=== PATIENT | male | born 1950 | race Caucasian/White ===

== ENCOUNTER 2019-05-09 11:30 | Emergency (ER) | payer OTHER ==
[2019-05-09 11:47] VITALS: BP 111/65; PULSE 59
[2019-05-09 12:16] LABS: ANION GAP 13.3; CHLORIDE,CL 91 mmol/L (101-111); SODIUM,NA 131 mmol/L (135-145)
[2019-05-09] MEDS ORDERED: Aspirin 81 MG Tab.Chew PO ONE (12:45)
--- NOTE | 2019-05-09 16:36 | EDM.PDOC ---
ED HPI GENERAL MEDICAL PROBLEM - General Chief Complaint: General Stated Complaint: CHEST PAIN/NECK PAIN Time Seen by Provider: 05/09/19 12:00 Source of Information: Reports: Patient History Limitations: Reports: No Limitations - History of Present Illness INITIAL COMMENTS - FREE TEXT/NARRATIVE: This 69 yo male patient reports to the emergency department due to bilateral shoulder pain and left anterior noble pain. The patient [facility] and [facility] to report directly to the [facility]. The patient reports his shoulder pain has been getting better. The patient reports his left anterior noble started today and has been getting worse. Onset: Today Duration: Constant, Improving Location: Reports: Upper Extremity, Left, Upper Extremity, Right, Lower Extremity, Left Quality: Reports: Other Severity: Moderate Improves with: Reports: None Worsens with: Reports: None Context: Reports: Other Bilateral Shoulder Pain Score (Numeric/FACES): 1 - Related Data Allergies Allergy/AdvReac Type Severity Reaction Status Date / Time acetaminophen [From Tylenol] Allergy Cannot Verified 05/09/19 11:47 Remember cephalexin [Cephalexin] Allergy Rash Verified 05/09/19 11:47 Home Meds: Home Meds Aspirin [Halfprin] 81 mg PO DAILY 06/20/13 [History] lamoTRIgine [Lamictal] 200 mg PO BID 06/20/13 [History] levETIRAcetam [Keppra] 750 mg PO BID 06/20/13 [History] Lisinopril 2.5 mg PO DAILY 03/03/15 [History] Metoprolol Tartrate 50 mg PO DAILY 03/03/15 [History] Pyridoxine HCl (Vitamin B6) [Pyridoxine HCl] 50 mg PO DAILY 03/03/15 [History] Calcium Carbonate/Vitamin D3 [Calcium Carb 500 MG] 260 mg PO BID 05/09/19 [ History] Cholecalciferol (Vitamin D3) [Vitamin D3] 2,000 unit PO DAILY 05/09/19 [History] Nitroglycerin [Nitrostat] 0.4 mg SL ASDIRECTED PRN 05/09/19 [History] Past Medical History HEENT History: Reports: Hard of Hearing, Impaired Vision Other HEENT History: wears glasses and hearing aides Cardiovascular History: Reports: High Cholesterol, Hypertension Respiratory History: Reports: None Genitourinary History: Reports: None Musculoskeletal History: Reports: Fracture Neurological History: Reports: Seizure Psychiatric History: Reports: None Endocrine/Metabolic History: Reports: None Hematologic History: Reports: None Immunologic History: Reports: None Oncologic (Cancer) History: Reports: None Dermatologic History: Reports: None - Infectious Disease History Infectious Disease History: Reports: Measles, Mumps - Past Surgical History Head Surgeries/Procedures: Reports: None Cardiovascular Surgical History: Reports: Coronary Artery Stent GI Surgical History: Reports: Colonoscopy Musculoskeletal Surgical History: Reports: Shoulder Replacement Social & Family History - Tobacco Use Smoking Status *Q: Current Every Day Smoker Years of Tobacco use: 52 Packs/Tins Daily: 0.5 Second Hand Smoke Exposure: No - Caffeine Use Caffeine Use: Reports: Coffee - Recreational Drug Use Recreational Drug Use: No ED ROS GENERAL - Review of Systems Review Of Systems: Comprehensive ROS is negative, except as noted in HPI. ED EXAM, GENERAL - Physical Exam Exam: See Below Exam Limited By: No Limitations General Appearance: Alert, WD/WN, Moderate Distress Eye Exam: Bilateral Eye: EOMI, Normal Inspection, PERRL Ears: Normal External Exam, Normal Canal, Hearing Grossly Normal, Normal TMs Nose: Normal Inspection, Normal Mucosa, No Blood Throat/Mouth: Normal Inspection, Normal Lips, Normal Teeth, Normal Gums, Normal Oropharynx, Normal Voice, No Airway Compromise Head: Atraumatic, Normocephalic Neck: Normal Inspection, Supple, Non-Tender, Full Range of Motion Respiratory/Chest: No Respiratory Distress, Lungs Clear, Normal Breath Sounds, No Accessory Muscle Use, Chest Non-Tender Cardiovascular: Normal Peripheral Pulses, Regular Rate, Rhythm, No Edema, No Gallop, No JVD, No Murmur, No Rub GI/Abdominal: Normal Bowel Sounds, Soft, Non-Tender, No Organomegaly, No Distention, No Abnormal Bruit, No Mass (Male) Exam: Deferred Rectal (Males) Exam: Deferred Back Exam: Normal Inspection, Full Range of Motion, NT Extremities: Normal Inspection, Normal Range of Motion, Non-Tender, Normal Capillary Refill, No Pedal Edema Neurological: Alert, Oriented, CN II-XII Intact, Normal Cognition, Normal Gait, Normal Reflexes, No Motor/Sensory Deficits Psychiatric: Normal Affect, Normal Mood Skin Exam: Warm, Dry, Intact, Normal Color, No Rash Lymphatic: No Adenopathy Course - Vital Signs Last Recorded V/S: Last Vital Signs Temp 36.3 C 05/09/19 11:40 Pulse 59 L 05/09/19 11:40 Resp 16 05/09/19 11:40 BP 111/65 05/09/19 11:40 Pulse Ox 98 05/09/19 11:40 - Orders/Labs/Meds Orders: Active Orders 24 hr Category Date Time Status EKG Documentation Completion [RC] ROUTINE Care 05/09/19 15:45 Active EKG Documentation Completion [RC] URGENT Care 05/09/19 11:31 Active Labs: Laboratory Tests 05/09/19 05/09/19 05/09/19 Range/Units 11:46 11:46 15:53 WBC 9.0 (5.0-10.0) 10^3/uL RBC 4.14 L (4.6-6.2) 10^6/uL Hgb 13.3 L D (14.0-18.0) g/dL Hct 38.9 L (40.0-54.0) % MCV 94.0 (80-100) fL MCH 32.1 (27.0-34.0) pg MCHC 34.2 (33.0-35.0) g/dL Plt Count 260 (150-450) 10^3/uL Neut % (Auto) 66.2 (42.2-75.2) % Lymph % (Auto) 17.3 L (20.5-50.1) % [place] % (Auto) 12.1 H (2-8) % Eos % (Auto) 4.0 H (1.0-3.0) % Baso % (Auto) 0.4 (0.0-1.0) % Sodium 131 L (135-145) mmol/L Potassium 4.3 (3.6-5.0) mmol/L Chloride 91 L D (101-111) mmol/L Carbon Dioxide 31.0 (21.0-31.0) mmol/L Anion Gap 13.3 BUN 16 (7-18) mg/dL Creatinine 1.0 (0.6-1.3) mg/dL Est Cr Clr Drug Dosing 70.97 mL/min Estimated GFR (MDRD) > 60 BUN/Creatinine Ratio 16.00 Glucose 86 (74-105) mg/dL Calcium 9.1 (8.4-10.2) mg/dl Total Bilirubin 1.0 (0.2-1.0) mg/dL AST 55 H (10-42) IU/L ALT 39 (10-60) IU/L Alkaline Phosphatase 270 H (42-121) IU/L Troponin I 0.04 H* < 0.02 (0.00-0.02) ng/ml Total Protein 6.9 (6.7-8.2) g/dl Albumin 3.7 (3.2-5.5) g/dl Globulin 3.2 Albumin/Globulin Ratio 1.16 Meds: Medications Discontinued Medications Generic Name Dose Route Start Last Admin Trade Name Cindy PRN Reason Stop Dose Admin Aspirin 324 mg 05/09/19 12:45 05/09/19 13:19 Aspirin PO 05/09/19 12:46 324 mg ONETIME ONE Administration Departure - Departure Time of Disposition: 16:32 Disposition: Home, Self-Care 01 Condition: Fair Clinical Impression: Nonspecific chest pain Left shoulder pain Qualifiers: Chronicity: acute Qualified Code(s): M25.512 - Pain in left shoulder - Discharge Information *PRESCRIPTION DRUG MONITORING PROGRAM REVIEWED*: Not Applicable *COPY OF PRESCRIPTION DRUG MONITORING REPORT IN PATIENT DALIA: Not Applicable Instructions: Shoulder Pain, [id number], Nonspecific Chest Pain, [id number] Forms: ED Department Discharge Care Plan Goals: The patient and his were advised of the examination, lab, x-ray, EKG, repeat EKG and repeat lab results during the visit. The patient was encouraged to follow-up with his primary care facility if he continues to have symptoms. If the patient has any additional symptoms or concerns, the patient should either return to the emergency department or visit his primary care facility. Sepsis Event Note - Evaluation Sepsis Screening Result: No Definite Risk - Focused Exam Vital Signs: Vital Signs Temp Pulse Resp BP Pulse Ox 05/09/19 11:40 36.3 C 59 L 16 111/65 98 Date Exam was Performed: 05/09/19 Time Exam was Performed: 16:36 - My Orders Last 24 Hours: My Active Orders 05/09/19 11:31 EKG Documentation Completion [RC] URGENT 05/09/19 15:45 EKG Documentation Completion [RC] ROUTINE - Assessment/Plan Last 24 Hours: My Active Orders 05/09/19 11:31 EKG Documentation Completion [RC] URGENT 05/09/19 15:45 EKG Documentation Completion [RC] ROUTINE
== END 2019-05-09 16:50 | disposition home or self-care (01) ==
LOC: DL.ED 11:30
DX: M25.512 Pain in left shoulder (principal); R07.9 Chest pain, unspecified; R56.9 Unspecified convulsions; F17.210 Nicotine dependence, cigarettes, uncomplicated; Z88.1 Allergy status to other antibiotic agents; Z79.82 Long term (current) use of aspirin; Z79.899 Other long term (current) drug therapy
CPT/HCPCS: 36415; 80053; 84484; 85025; 93005; 99283; A9270

== ENCOUNTER 2019-08-12 11:47 | Emergency (ER) | payer OTHER ==
--- NOTE | 2019-08-12 11:57 | EDM.PDOC ---
ED HPI GENERAL MEDICAL PROBLEM - General Chief Complaint: Chest Pain Stated Complaint: CHEST PAIN Time Seen by Provider: 08/12/19 11:56 Source of Information: Reports: Patient, Old Records, RN, RN Notes Reviewed History Limitations: Reports: No Limitations - History of Present Illness INITIAL COMMENTS - FREE TEXT/NARRATIVE: Pt presents to ER from home with c/o chest pain. He states that he is currently on a chemo tx. 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 Pt states that yesterday he was laying on a concrete floor working on a mower deck, trying to keep up with his healthy [place]. After working on the mower his left chest wall, left shoulder, and upper back were sore. Through the night, and today the pain has moved around in the left chest, shoulder, upper back, and neck and has been waxing and waning in intensity. Movement of the torso and left shoulder aggravates the pain. He denies radiating pain, severe pain, shortness of breath, cough, edema, palpitations, orthopnea, fever, chills, N/V, or rash. Denies any Covid exposures. Pt took his Aspirin and all of his other routine medications this morning. He did not take any Nitroglycerin for the pain. Onset: Gradual Onset Date: 08/11/19 Duration: Constant, Waxing/Waning Location: Reports: Chest, Upper Extremity, Left Quality: Reports: Ache Severity: Mild Improves with: Reports: None Worsens with: Reports: Movement Associated Symptoms: Reports: No Other Symptoms Treatments REGISTERED NURSE: Reports: Aspirin, Other Medication(s) Left Chest Pain Score (Numeric/FACES): 6 - Related Data Allergies Allergy/AdvReac Type Severity Reaction Status Date / Time acetaminophen [From Tylenol] Allergy Cannot Verified 05/09/19 11:47 Remember cephalexin [Cephalexin] Allergy Rash Verified 05/09/19 11:47 hydrocodone Allergy Cannot Verified 08/12/19 12:20 Remember Home Meds: Home Meds Aspirin [Halfprin] 81 mg PO DAILY 06/20/13 [History] lamoTRIgine [Lamictal] 200 mg PO BID 06/20/13 [History] levETIRAcetam [Keppra] 750 mg PO BID 06/20/13 [History] Lisinopril 2.5 mg PO DAILY 03/03/15 [History] Metoprolol Tartrate 25 mg PO DAILY 03/03/15 [History] Pyridoxine HCl (Vitamin B6) [Pyridoxine HCl] 100 mg PO DAILY 03/03/15 [History] Calcium Carbonate/Vitamin D3 [Calcium Carb 500 MG] 648 mg PO DAILY 05/09/19 [ History] Cholecalciferol (Vitamin D3) [Vitamin D3] 50 mcg PO DAILY 05/09/19 [History] Alendronate Sodium 70 mg PO DAILY 08/12/19 [History] Allopurinol [Zyloprim] 300 mg PO DAILY 08/12/19 [History] Lidocaine 5% [Lidoderm 5%] 1 patch TOP ASDIRECTED 08/12/19 [History] Prochlorperazine Maleate 10 mg PO Q6HR PRN 08/12/19 [History] Tiotropium [Spiriva HandiHaler] 18 mcg PO DAILY 08/12/19 [History] dexAMETHasone [Dexamethasone] 8 mg PO DAILY 08/12/19 [History] traMADol [Ultram] 50 mg PO TID PRN 08/12/19 [History] Past Medical History HEENT History: Reports: Hard of Hearing, Impaired Vision Other HEENT History: wears glasses and hearing aides Cardiovascular History: Reports: High Cholesterol, Hypertension Respiratory History: Reports: None Gastrointestinal History: Reports: Colon Polyp Genitourinary History: Reports: None Musculoskeletal History: Reports: Fracture Neurological History: Reports: Seizure Psychiatric History: Reports: None Endocrine/Metabolic History: Reports: None Hematologic History: Reports: None Immunologic History: Reports: Immunosuppression (Chemo tx.) Oncologic (Cancer) History: Reports: Colon, Liver, 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.) Dermatologic History: Reports: None - Infectious Disease History Infectious Disease History: Reports: Measles, Mumps - Past Surgical History Head Surgeries/Procedures: Reports: None Cardiovascular Surgical History: Reports: Coronary Artery Stent GI Surgical History: Reports: Colonoscopy, Polypectomy, Other (See Below) ( Liver biopsy) Musculoskeletal Surgical History: Reports: Shoulder Replacement Social & Family History - Family History Family Medical History: Noncontributory - Caffeine Use Caffeine Use: Reports: Coffee - Living Situation & Occupation Living situation: Reports: , with Spouse Occupation: Retired ED ROS GENERAL - Review of Systems Review Of Systems: Comprehensive ROS is negative, except as noted in HPI. ED EXAM, GENERAL - Physical Exam Exam: See Below Exam Limited By: No Limitations General Appearance: Alert, WD/WN, No Apparent Distress Eye Exam: Bilateral Eye: Normal Inspection Nose: Normal Inspection Throat/Mouth: Normal Inspection, Normal Lips, Normal Teeth, Normal Gums, Normal Oropharynx, Normal Voice, No Airway Compromise Head: Atraumatic, Normocephalic Neck: Normal Inspection, Supple, Non-Tender, Full Range of Motion Respiratory/Chest: No Respiratory Distress, Lungs Clear, Normal Breath Sounds, No Accessory Muscle Use, Other (Tender to palpation at left lower anterior chest wall, no visible bruising, swelling, rash, or redness. No palpable mass or crepitus.). No: Crackles, Rales, Rhonchi, Wheezing, Stridor, Splinting Cardiovascular: Normal Peripheral Pulses, Regular Rate, Rhythm, No Edema, No Gallop, No JVD, No Murmur, No Rub GI/Abdominal: Normal Bowel Sounds, Soft, Non-Tender, No Organomegaly, No Distention, No Abnormal Bruit, No Mass Back Exam: Normal Inspection Extremities: Normal Inspection, Normal Range of Motion, Non-Tender, Normal Capillary Refill, No Pedal Edema Neurological: Alert, Oriented, CN II-XII Intact, Normal Cognition, Normal Gait, No Motor/Sensory Deficits Psychiatric: Normal Affect, Normal Mood Skin Exam: Warm, Dry, Intact, Normal Color, No Rash EKG INTERPRETATION EKG Date: 08/12/19 Time: 11:55 Rhythm: Other (SR) Rate (Beats/Min): 63 [place]: Normal P-Wave: Present QRS: Normal ST-T: Normal QT: Normal Comparison: NA - No Prior EKG Course - Vital Signs Last Recorded V/S: Last Vital Signs Temp 97.9 F 08/12/19 12:14 Pulse 70 08/12/19 12:14 Resp 16 08/12/19 12:14 BP 125/97 H 08/12/19 12:14 Pulse Ox 97 08/12/19 12:14 - Orders/Labs/Meds Orders: Active Orders 24 hr Category Date Time Status EKG 12 Lead [EKG Documentation Completion] [RC] STAT Care 08/12/19 11:58 Active Implanted Port Access [RC] ONETIME Care 08/12/19 11:57 Active Chest 1V Frontal [CR] Stat Exams 08/12/19 11:57 Taken CBC WITH AUTO DIFF [HEME] Stat Lab 08/12/19 12:09 Results MANUAL DIFFERENTIAL QA/NC [HEME] Stat Lab 08/12/19 12:09 Results Labs: Laboratory Tests 08/12/19 08/12/19 Range/Units 12:09 12:09 WBC 23.9 H (5.0-10.0) 10^3/uL RBC 2.97 L (4.6-6.2) 10^6/uL Hgb 10.2 L D (14.0-18.0) g/dL Hct 29.5 L (40.0-54.0) % MCV 99.3 D (80-100) fL MCH 34.3 H (27.0-34.0) pg MCHC 34.6 (33.0-35.0) g/dL Plt Count 202 (150-450) 10^3/uL Neut % (Auto) 91.1 H (42.2-75.2) % Lymph % (Auto) 7.5 L (20.5-50.1) % [place] % (Auto) 1.0 L (2-8) % Eos % (Auto) 0.4 L (1.0-3.0) % Baso % (Auto) 0.0 (0.0-1.0) % Add Manual Diff Yes Sodium 133 L (136-145) mmol/L Potassium 4.3 (3.5-5.1) mmol/L Chloride 96 L (98-107) mmol/L Carbon Dioxide 33 H (21-32) mmol/L Anion Gap 8.3 (7-13) mEq/L BUN 20 H (7-18) mg/dL Creatinine 0.81 (0.70-1.30) mg/dL Est Cr Clr Drug Dosing 76.58 mL/min Estimated GFR (MDRD) > 60 BUN/Creatinine Ratio 24.7 (No establ ref range) Glucose 87 (74-99) mg/dL Calcium 8.0 L (8.5-10.1) mg/dL Total Bilirubin 0.7 (0.2-1.0) mg/dL AST 24 (15-37) U/L ALT 38 (16-63) U/L Alkaline Phosphatase 117 H (46-116) U/L Troponin I < 0.017 (0.000-0.056) ng/mL Total Protein 5.8 L (6.4-8.2) g/dL Albumin 3.2 L (3.4-5.0) g/dL Globulin 2.6 Albumin/Globulin Ratio 1.23 - Radiology Interpretation Free Text/Narrative:: XR Chest: no acute process, see Rad. report. Departure - Departure Time of Disposition: 12:54 Disposition: Home, Self-Care 01 Condition: Good Clinical Impression: Atypical chest pain Instructions: Nonspecific Chest Pain, Adult Forms: ED Department Discharge Additional Instructions: Activity as tolerated. Follow up with your doctor if not improving in the few days. Return to ER if chest pain worsens, or any new or emergent symptoms develop. Sepsis Event Note - Focused Exam Vital Signs: Vital Signs Temp Pulse Resp BP Pulse Ox 08/12/19 12:14 97.9 F 70 16 125/97 H 97 Date Exam was Performed: 08/12/19 Time Exam was Performed: 12:54 - My Orders Last 24 Hours: My Active Orders 08/12/19 11:57 Implanted Port Access [RC] ONETIME Chest 1V Frontal [CR] Stat 08/12/19 11:58 EKG 12 Lead [EKG Documentation Completion] [RC] STAT 08/12/19 12:09 CBC WITH AUTO DIFF [HEME] Stat MANUAL DIFFERENTIAL QA/NC [HEME] Stat - Assessment/Plan Last 24 Hours: My Active Orders 08/12/19 11:57 Implanted Port Access [RC] ONETIME Chest 1V Frontal [CR] Stat 08/12/19 11:58 EKG 12 Lead [EKG Documentation Completion] [RC] STAT 08/12/19 12:09 CBC WITH AUTO DIFF [HEME] Stat MANUAL DIFFERENTIAL QA/NC [HEME] Stat
[2019-08-12 12:19] VITALS: BP 125/97; PULSE 70
[2019-08-12 12:43] LABS: ANION GAP 8.3 mEq/L (7-13); CHLORIDE,CL 96 mmol/L (98-107); SODIUM,NA 133 mmol/L (136-145)
--- NOTE | 2019-08-12 13:26 | CR ---
EXAMINATION: Chest 1V Frontal SEX: Male AGE: 69 years CLINICAL HISTORY: 69-year-old male complaining of CHEST PAIN. INTERPRETATION: No acute new cardiopulmonary abnormality since comparison film 20 June 2013. 1. Ectasia thoracic aorta and chronic prominence of the proximal pulmonary artery segments. 2. Bilateral total shoulder replacements (orthopedic prostheses). 3. Normal cardiac silhouette. No pulmonary vascular congestion, cephalization of flow or alveolar edema. External telemetry monitor leads. No dependent pleural fluid accumulation. 4. No new lung mass, hilar lymphadenopathy or focal lobar pneumonia. No atelectasis/collapse. 5. No pneumothorax or pneumomediastinum. Midline tracheal bronchial airway unremarkable. CONCLUSION:
== END 2019-08-12 13:07 | disposition home or self-care (01) ==
LOC: DL.ED 11:47
DX: R07.89 Other chest pain (principal); I10 Essential (primary) hypertension; R56.9 Unspecified convulsions; Z95.5 Presence of coronary angioplasty implant and graft; Z88.1 Allergy status to other antibiotic agents; Z88.5 Allergy status to narcotic agent; Z79.82 Long term (current) use of aspirin; Z79.899 Other long term (current) drug therapy
CPT/HCPCS: 36415; 71045; 80053; 84484; 85025; 93005; 93010; 99284; 99285; J1642

== ENCOUNTER 2019-08-18 09:08 | Emergency (ER) | payer OTHER ==
--- NOTE | 2019-08-18 09:20 | EDM.PDOC ---
"ED HPI GENERAL MEDICAL PROBLEM - General Chief Complaint: Trauma Stated Complaint: AMBULANCE Time Seen by Provider: 08/18/19 09:20 Source of Information: Reports: Patient, EMS, Old Records, RN, RN Notes Reviewed History Limitations: Reports: No Limitations - History of Present Illness INITIAL COMMENTS - FREE TEXT/NARRATIVE: Pt arrives by [place] ambulance with report that he was witness to fall at the [employer] parking lot in [place] at approx. 0830HRS this morning. Pt states he went to [employer] and bought a pack of cigarettes then went outside to the parking lot to smoke one. He dropped the cigarette pain in the parking lot and bent down to pick it up and fell forward. The next thing he remembers he woke up being loaded into the ambulance. EMS reports witnesses thought the pt may have had a brief seizure lasting about 20 seconds when he fell. EMS reports pt had gurgling and noisy breathing upon their initial contact with the pt, and they recognized the breathing and confusion to be consistent with postictal/post- seizure activity. He denies headache. Pt reports pain to the right anterior chest wall inferior to the area of his vascular port. EMS reports pt bumped his head on the grill or bumper of a truck when he fell. Pt denies pain to head, neck, or face. He does take a daily Aspirin. Pt denies cough, shortness of breath, eye irritation/drainage, loss of taste or smell, red tongue, rash or skin lesions, abdominal pain, N/V/D, fevers, chills, recent travel, or known exposure to confirmed or suspected Covid-19 cases. TRAUMA NOTES: ARRIVAL TIME: 0920HRS C-COLLAR STATUS: applied by EMS on scene SPINAL BOARD/IMMOBILIZATION STATUS: arrived on long spine board, removed immediately on arrival to ER. GCS ON ARRIVAL: 15 Onset: Today, Sudden - Related Data Allergies Allergy/AdvReac Type Severity Reaction Status Date / Time acetaminophen [From Tylenol] Allergy Cannot Verified 05/09/19 11:47 Remember cephalexin [Cephalexin] Allergy Rash Verified 05/09/19 11:47 hydrocodone Allergy Cannot Verified 08/12/19 12:20 Remember Home Meds: Home Meds Aspirin [Halfprin] 81 mg PO DAILY 06/20/13 [History] lamoTRIgine [Lamictal] 200 mg PO BID 06/20/13 [History] levETIRAcetam [Keppra] 750 mg PO BID 06/20/13 [History] Lisinopril 2.5 mg PO DAILY 03/03/15 [History] Metoprolol Tartrate 25 mg PO DAILY 03/03/15 [History] Pyridoxine HCl (Vitamin B6) [Pyridoxine HCl] 100 mg PO DAILY 03/03/15 [History] Calcium Carbonate/Vitamin D3 [Calcium Carb 500 MG] 648 mg PO DAILY 05/09/19 [ History] Cholecalciferol (Vitamin D3) [Vitamin D3] 50 mcg PO DAILY 05/09/19 [History] Alendronate Sodium 70 mg PO DAILY 08/12/19 [History] Allopurinol [Zyloprim] 300 mg PO DAILY 08/12/19 [History] Lidocaine 5% [Lidoderm 5%] 1 patch TOP ASDIRECTED 08/12/19 [History] Prochlorperazine Maleate 10 mg PO Q6HR PRN 08/12/19 [History] Tiotropium [Spiriva HandiHaler] 18 mcg PO DAILY 08/12/19 [History] dexAMETHasone [Dexamethasone] 8 mg PO DAILY 08/12/19 [History] traMADol [Ultram] 50 mg PO TID PRN 08/12/19 [History] Past Medical History HEENT History: Reports: Hard of Hearing, Impaired Vision Other HEENT History: wears glasses and hearing aides Cardiovascular History: Reports: High Cholesterol, Hypertension Respiratory History: Reports: None Gastrointestinal History: Reports: Colon Polyp Genitourinary History: Reports: None Musculoskeletal History: Reports: Fracture Neurological History: Reports: Seizure Psychiatric History: Reports: None Endocrine/Metabolic History: Reports: None Hematologic History: Reports: None Immunologic History: Reports: Immunosuppression (Chemo tx.) Oncologic (Cancer) History: Reports: Colon, Liver, 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.) Dermatologic History: Reports: None - Infectious Disease History Infectious Disease History: Reports: Measles, Mumps - Past Surgical History Head Surgeries/Procedures: Reports: None Cardiovascular Surgical History: Reports: Coronary Artery Stent GI Surgical History: Reports: Colonoscopy, Polypectomy, Other (See Below) ( Liver biopsy) Musculoskeletal Surgical History: Reports: Shoulder Replacement Social & Family History - Family History Family Medical History: Noncontributory - Tobacco Use Smoking Status *Q: Current Every Day Smoker Tobacco Use Within Last Twelve Months: Cigarettes - Caffeine Use Caffeine Use: Reports: Coffee - Living Situation & Occupation Living situation: Reports: , with Spouse Occupation: Retired Review of Systems - Review of Systems Review Of Systems: Comprehensive ROS is negative, except as noted in HPI. ED EXAM, GENERAL - Physical Exam Exam: See Below Free Text/Narrative:: PRIMARY TRAUMA SURVEY (0922hrs) AIRWAY: Patent nasal and oral airways. BREATHING: Spontaneous respirations with clear B/L breath sounds. CIRCULATION: Heart RRR, intact distal pulses at all four extremities, no cyanosis. DEFORMITY/DISABILITY: C-collar not removed for exam. Head NC/AT. Tender at Rt anterior chest wall overlying ribs 5-8 with no visible bruising, swelling or deformity. No long bone deformities. No active bleeding. No neuro. deficits. Abdomen benign to exam. Pelvis stable. SECONDARY TRAUMA SURVEY ( hrs) Exam Limited By: No Limitations General Appearance: Alert, No Apparent Distress, Other (Chronically ill appearing) Eye Exam: Bilateral Eye: EOMI, Normal Inspection, PERRL Ears: Normal External Exam, Hearing Grossly Normal Nose: Normal Inspection, Normal Mucosa, No Blood Throat/Mouth: Normal Inspection, Normal Lips, Normal Teeth, Normal Gums, Normal Oropharynx, Normal Voice, No Airway Compromise Head: Atraumatic, Normocephalic Neck: Other (C-spine cleared by CT scan. C-collar not removed.) Respiratory/Chest: No Respiratory Distress, Lungs Clear, Normal Breath Sounds, No Accessory Muscle Use, Chest Non-Tender Cardiovascular: Regular Rate, Rhythm, No Edema GI/Abdominal: Normal Bowel Sounds, Soft, Non-Tender, No Distention, No Abnormal Bruit, No Mass. No: Guarding, Rigid, Rebound (Male) Exam: Deferred Rectal (Males) Exam: Deferred Back Exam: Normal Inspection, Full Range of Motion, NT Extremities: Normal Inspection, Normal Range of Motion, Non-Tender, Normal Capillary Refill, No Pedal Edema Neurological: Alert, Oriented, CN II-XII Intact, Normal Cognition, No Motor/ Sensory Deficits, Other (GCS 15 at time of transfer.) Psychiatric: Normal Affect, Normal Mood Skin Exam: Warm, Dry, Intact, Normal Color, No Rash EKG INTERPRETATION EKG Date: 08/18/19 Time: 09:26 Rhythm: Other (SR) Rate (Beats/Min): 63 [place]: Normal P-Wave: Present QRS: Other (Narrow complex QRS with early precordial R/S transition) ST-T: Normal QT: Normal Comparison: No Change Course - Vital Signs Last Recorded V/S: See paper trauma chart for VS, reviewed by me. - Orders/Labs/Meds Orders: Active Orders 24 hr Category Date Time Status Blood Glucose Check, Bedside [] ONETIME Care 08/18/19 09:23 Active EKG 12 Lead [EKG Documentation Completion] [] STAT Care 08/18/19 09:22 Active Implanted Port Access [] ONETIME Care 08/18/19 09:28 Active Peripheral IV Care [] . DIRECTED Care 08/18/19 09:23 Inactive Cervical Spine wo Cont [CT] Stat Exams 08/18/19 09:20 Taken Ribs 2V w Chest Rt [CR] Stat Exams 08/18/19 09:27 Ordered DRUG SCREEN URINE BIORAD [URCHEM] Stat Lab 08/18/19 09:23 Ordered UA RFX MAYITO AND CULT IF INDIC [URIN] Stat Lab 08/18/19 09:23 Ordered Lactated Ringers [Ringers, Lactated] 1,000 ml Med 08/18/19 09:24 Active IV .BOLUS Medication Orders Lactated Ringer's (Ringers, Lactated) 1,000 mls @ 999 mls/hr IV .BOLUS ONE Stop: 08/18/19 10:24 Last Admin: 08/18/19 09:37 Dose: 999 mls/hr Labs: Laboratory Tests 08/18/19 08/18/19 08/18/19 Range/Units 09:33 09:33 09:33 WBC 2.1 L (5.0-10.0) 10^3/uL RBC 2.68 L (4.6-6.2) 10^6/uL Hgb 9.2 L (14.0-18.0) g/dL Hct 26.7 L (40.0-54.0) % MCV 99.6 (80-100) fL MCH 34.3 H (27.0-34.0) pg MCHC 34.5 (33.0-35.0) g/dL Plt Count 80 L D (150-450) 10^3/uL Neut % (Auto) 27.1 L (42.2-75.2) % Lymph % (Auto) 53.9 H (20.5-50.1) % Dare % (Auto) 17.0 H (2-8) % Eos % (Auto) 1.5 (1.0-3.0) % Baso % (Auto) 0.5 (0.0-1.0) % PT 11.2 (9.0-12.0) SEC INR 1.2 (0.9-1.2) APTT 30.1 (22.0-34.0) SEC Sodium 134 L (136-145) mmol/L Potassium 4.2 (3.5-5.1) mmol/L Chloride 98 (98-107) mmol/L Carbon Dioxide 29 (21-32) mmol/L Anion Gap 11.2 (7-13) mEq/L BUN 17 (7-18) mg/dL Creatinine 0.88 (0.70-1.30) mg/dL Est Cr Clr Drug Dosing TNP Estimated GFR (MDRD) > 60 BUN/Creatinine Ratio 19.3 (No establ ref range) Glucose 90 (74-99) mg/dL Calcium 8.0 L (8.5-10.1) mg/dL Total Bilirubin 0.4 (0.2-1.0) mg/dL AST 23 (15-37) U/L ALT 41 (16-63) U/L Alkaline Phosphatase 112 (46-116) U/L Troponin I < 0.017 (0.000-0.056) ng/mL Total Protein 5.7 L (6.4-8.2) g/dL Albumin 3.2 L (3.4-5.0) g/dL Globulin 2.5 Albumin/Globulin Ratio 1.28 Ethyl Alcohol < 3 (0) mg/dL Meds: Medications Generic Name Dose Route Start Last Admin Trade Name Freq PRN Reason Stop Dose Admin Lactated Ringer's 1,000 mls @ 999 mls/hr 08/18/19 09:24 08/18/19 09:37 Ringers, Lactated IV 08/18/19 10:24 999 mls/hr .BOLUS ONE Administration Discontinued Medications Generic Name Dose Route Start Last Admin Trade Name Freq PRN Reason Stop Dose Admin Sodium Chloride 10 ml 08/18/19 09:22 Saline Flush FLUSH ASDIRECTED PRN Keep Vein Open - Radiology Interpretation Free Text/Narrative:: [facility] [place] [facility] Final Radiology Report Call: [phone] assistance Online chat: [email or web address] Name: KALEY DENNIS Age: 69Years M Date: 08/18/2019 SSN: -- : [id number] Study: CT HEAD WO CONT Requesting Physician: SHAMA SANTAMARIA Images: 147 Addl Studies: Provided Clinical History: TRAUMA: fall, head injury, on anticoagulant Contrast: Without Contrast Medium: Contrast Amount: Contrast Method: Page 1 of 2 PROCEDURE INFORMATION: Exam: CT Head Without Contrast Exam date and time: 08/18/2019 9:49 AM Age: 69 years old Clinical indication: Injury or trauma; Fall; Initial encounter; Blunt trauma ( contusions or hematomas); Additional info: Trauma: Fall, head injury, on anticoagulant TECHNIQUE: Imaging protocol: Computed tomography of the head without contrast. Radiation optimization: All CT scans at this facility use at least one of these dose optimization techniques: automated exposure control; mA and/or kV adjustment per patient size (includes targeted exams where dose is matched to clinical indication); or iterative reconstruction. COMPARISON: No relevant prior studies available. FINDINGS: Brain: Small volume acute blood is present layering in the sulci of the bilateral frontal and parietal cortices. There is multifocal 3-4 mm thickening of the interhemispheric falx with few foci of associated negative attenuation locules of gas or fat. No midline shift. Multiple scattered periventricular and subcortical white matter hypodensities are demonstrated likely related to chronic ischemic microvascular change. Ventricles: Normal. No ventriculomegaly. Bones/joints: No acute fracture. Sinuses: Partially imaged left inferior maxillary sinus mucosal retention cyst or polyp. No fluid levels. Mastoid air cells: Visualized mastoid air cells are well aerated. Vasculature: The vertebral and cavernous carotid arteries are calcified. Soft tissues: Small right posterior parietal scalp contusion. IMPRESSION: KALEY DENNIS | Final Radiology Report CONFIDENTIALITY STATEMENT This report is intended only for use by the referring physician, and only in accordance with law. If you received this in error, call [phone]. Page 2 of 2 1. Small volume bilateral frontal and parietal subarachnoid hemorrhage and subdural blood along the interhemispheric fissure. No midline shift. 2. Small volume pneumocephalus within the interhemispheric fissure versus fatty falx cerebri. 3. Small right posterior parietal scalp contusion. Thank you for allowing us to participate in the care of your patient. Dictated and Authenticated by: Amberly Crook MD 08/18/2019 10:15 AM Central Time ([place] & [place]) CT C-spine: nondisplaced C2 fracture, see Rad. report when available. - Re-Assessments/Exams Free Text/Narrative Re-Assessment/Exam: 08/18/19 10:23 Pt stable, VSS, awake and alert at time of transfer. Departure - Departure Time of Disposition: 10:19 Disposition: DC/Tfer to Acute Hospital 02 Condition: Serious, Critical Clinical Impression: Subarachnoid hemorrhage after traumatic injury without open intracranial wound , with prolonged loss of consciousness and return to pre-existing level of consciousness, Fall from ground level, History of colon cancer, Cancer, metastatic to liver Closed fracture of C2 vertebra Qualifiers: Encounter type: initial encounter Fracture morphology: unspecified fracture morphology Fracture alignment: nondisplaced Qualified Code(s): S12.101A - Unspecified nondisplaced fracture of second cervical vertebra, initial encounter for closed fracture - Discharge Information *PRESCRIPTION DRUG MONITORING PROGRAM REVIEWED*: Not Applicable *COPY OF PRESCRIPTION DRUG MONITORING REPORT IN PATIENT DALIA: Not Applicable Forms: ED Department Discharge, Interfacility Transfer EMTALA Sepsis Event Note - Focused Exam Date Exam was Performed: 08/18/19 Time Exam was Performed: 10:18 - My Orders Last 24 Hours: My Active Orders 08/18/19 09:20 Cervical Spine wo Cont [CT] Stat 08/18/19 09:22 EKG 12 Lead [EKG Documentation Completion] [RC] STAT 08/18/19 09:23 Blood Glucose Check, Bedside [RC] ONETIME Peripheral IV Care [RC] . DIRECTED DRUG SCREEN URINE BIORAD [URCHEM] Stat UA RFX MAYITO AND CULT IF INDIC [URIN] Stat 08/18/19 09:24 Lactated Ringers [Ringers, Lactated] 1,000 ml IV .BOLUS 08/18/19 09:27 Ribs 2V w Chest Rt [CR] Stat 08/18/19 09:28 Implanted Port Access [RC] ONETIME - Assessment/Plan Last 24 Hours: My Active Orders 08/18/19 09:20 Cervical Spine wo Cont [CT] Stat 08/18/19 09:22 EKG 12 Lead [EKG Documentation Completion] [RC] STAT 08/18/19 09:23 Blood Glucose Check, Bedside [RC] ONETIME Peripheral IV Care [RC] . DIRECTED DRUG SCREEN URINE BIORAD [URCHEM] Stat UA RFX MAYITO AND CULT IF INDIC [URIN] Stat 08/18/19 09:24 Lactated Ringers [Ringers, Lactated] 1,000 ml IV .BOLUS 08/18/19 09:27 Ribs 2V w Chest Rt [CR] Stat 08/18/19 09:28 Implanted Port Access [RC] ONETIME"
[2019-08-18] MEDS ORDERED: Sodium Chloride 0.9% 10 ML Syringe FLUSH PRN (09:22)
[2019-08-18] MEDS ORDERED: Lactated Ringers 1,000 ML IV ONE (09:24)
[2019-08-18 09:56] LABS: PTT,PARTIAL THROMBOPLSTIN TIME 30.1 SEC (22.0-34.0)
[2019-08-18 10:00] LABS: ANION GAP 11.2 mEq/L (7-13); CHLORIDE,CL 98 mmol/L (98-107); SODIUM,NA 134 mmol/L (136-145)
--- NOTE | 2019-08-18 10:15 | CT ---
PROCEDURE INFORMATION: Exam: CT Head Without Contrast Exam date and time: 08/18/2019 9:49 AM Age: 69 years old Clinical indication: Injury or trauma; Fall; Initial encounter; Blunt trauma (contusions or hematomas); Additional info: Trauma: Fall, head injury, on anticoagulant TECHNIQUE: Imaging protocol: Computed tomography of the head without contrast. Radiation optimization: All CT scans at this facility use at least one of these dose optimization techniques: automated exposure control; mA and/or kV adjustment per patient size (includes targeted exams where dose is matched to clinical indication); or iterative reconstruction. COMPARISON: No relevant prior studies available. FINDINGS: Brain: Small volume acute blood is present layering in the sulci of the bilateral frontal and parietal cortices. There is multifocal 3-4 mm thickening of the interhemispheric falx with few foci of associated negative attenuation locules of gas or fat. No midline shift. Multiple scattered periventricular and subcortical white matter hypodensities are demonstrated likely related to chronic ischemic microvascular change. Ventricles: Normal. No ventriculomegaly. Bones/joints: No acute fracture. Sinuses: Partially imaged left inferior maxillary sinus mucosal retention cyst or polyp. No fluid levels. Mastoid air cells: Visualized mastoid air cells are well aerated. Vasculature: The vertebral and cavernous carotid arteries are calcified. Soft tissues: Small right posterior parietal scalp contusion. IMPRESSION: 1. Small volume bilateral frontal and parietal subarachnoid hemorrhage and subdural blood along the interhemispheric fissure. No midline shift. 2. Small volume pneumocephalus within the interhemispheric fissure versus fatty falx cerebri. 3. Small right posterior parietal scalp contusion.
--- NOTE | 2019-08-18 10:59 | CT ---
PROCEDURE INFORMATION: Exam: CT Cervical Spine Without Contrast Exam date and time: 08/18/2019 9:49 AM Age: 69 years old Clinical indication: Injury or trauma; Fall; Initial encounter; Blunt trauma; Additional info: Trauma: Fall, head injury, on anticoagulant TECHNIQUE: Imaging protocol: Computed tomography images of the cervical spine without contrast. Radiation optimization: All CT scans at this facility use at least one of these dose optimization techniques: automated exposure control; mA and/or kV adjustment per patient size (includes targeted exams where dose is matched to clinical indication); or iterative reconstruction. COMPARISON: No relevant prior studies available. FINDINGS: Limitations: There is the usual obscuration of some anatomic detail around the level of the teeth related to streak artifact from dental hardware. Bone mineralization is diffusely decreased. Tubes, catheters and devices: Accessed right chest MediPort noted. Vertebrae: There is a nondisplaced fracture through the odontoid process and lateral masses of C2. Fracture fragments extend near but do not clearly traverse the transverse foramen. No dislocation. Discs/Spinal canal/Neural foramina: Multilevel degenerative changes are demonstrated throughout the cervical spine with disc space narrowing greatest C5-T1. There is associated multilevel facet hypertrophy, uncovertebral spurring, endplate sclerosis and osteophyte formation that contributes to multiple levels of mild bilateral neural foraminal stenosis. There is mild kyphosis of the cervical spine centered C7 where there may be an acute cortical disruption along the right superior posterior vertebral body (sagittal 78). There is a moderate superior endplate compression deformity T2. No retropulsion of bony fragments. Other bones/joints: Postsurgical changes are partially imaged at the right shoulder. Questionable nondisplaced fracture posterior right 1st rib and left 2nd ribs at the costovertebral junction. Left anterior 3rd rib deformity, age indeterminate. Soft tissues: Unremarkable. Sinuses: Small inferior left maxillary mucosal retention cyst or polyp. Lungs: Mild paraseptal emphysema. Vasculature: The vasculature demonstrates diffuse moderate atherosclerotic calcification. IMPRESSION: 1. Actue type III odontoid fracture. 2. Questionable acute nondisplaced fracture of the posterior superior C7 vertebral body. Recommend MRI of the cervical spine for further characterization. 3. Moderate superior endplate compression deformity T2. 4. Paraseptal emphysema. 5. Please see same-day head CT for details regarding acute intracranial blood. 6. Possible nondisplaced posterior rib fractures at the costovertebral junction. Age indeterminate left anterior 3rd rib deformity. THIS REPORT CONTAINS FINDINGS THAT MAY BE CRITICAL TO PATIENT CARE. The findings were verbally communicated via telephone conference with SHAMA SANTAMARIA at 10:44 AM CDT on 08/18/2019. The findings were acknowledged and understood.
== END 2019-08-18 10:39 ==
LOC: DL.ED 09:08
DX: S06.6X9A Traumatic subarachnoid hemorrhage with loss of consciousness of unspecified duration, initial encounter (principal); S12.101A Unspecified nondisplaced fracture of second cervical vertebra, initial encounter for closed fracture; C18.9 Malignant neoplasm of colon, unspecified; C78.7 Secondary malignant neoplasm of liver and intrahepatic bile duct; I10 Essential (primary) hypertension; E78.00 Pure hypercholesterolemia, unspecified; R56.9 Unspecified convulsions; Z95.5 Presence of coronary angioplasty implant and graft; F17.210 Nicotine dependence, cigarettes, uncomplicated; Z88.1 Allergy status to other antibiotic agents; Z88.5 Allergy status to narcotic agent; Z79.82 Long term (current) use of aspirin; Z79.899 Other long term (current) drug therapy; W19.XXXA Unspecified fall, initial encounter; Y92.481 Parking lot as the place of occurrence of the external cause
CPT/HCPCS: 36415; 70450; 72125; 80053; 80307; 84484; 85025; 85610; 85730; 93005; 93010; 96360; 99285; J7120

== ENCOUNTER 2019-09-02 12:22 | Emergency (ER) | payer OTHER ==
[2019-09-02 12:51] VITALS: BP 124/89; PULSE 68
--- NOTE | 2019-09-02 13:12 | EDM.PDOC ---
ED HPI GENERAL MEDICAL PROBLEM - General Stated Complaint: RECENT HIT ON THE HEAD Time Seen by Provider: 09/02/19 12:55 Source of Information: Reports: Patient History Limitations: Reports: No Limitations - History of Present Illness INITIAL COMMENTS - FREE TEXT/NARRATIVE: Patient comes emergency department today he was directed by the MD clinic for evaluation of his past intracranial hemorrhage. This patient on sustained a fall where he was seen in the emergency department here and [place]. He was diagnosed with a C2 nondisplaced fracture as well as a small subarachnoid hemorrhage. He was transferred to [facility] in [place] where he subsequently was discharged home with an [place] cervical collar. He has had intermittent pains in his shoulders and his arms that has not gotten worse or change since he has been original accident. He was contacted by the MD clinic today because they just reviewed his CT scan and noted on 08-18-19 that he had a subarachnoid hemorrhage at that time. They instructed him to immediately come to the emergency department to have evaluation of the subarachnoid hemorrhage that he was seen for treated and transferred to a neurosurgeon on 08-18-19. Today the patient was without any complaints. He has no change in his visual acuity. No headache. No blurry or double vision. No difficult aspect of cognition. His speech was clear. He has no nausea or vomiting. At the time of evaluation in the emergency department he has no headache he has no neck pain he has no paresthesias of his upper or lower extremities. He has no chest pain shortness of breath or difficulty breathing. No cough or congestion. No fever no chills. No COVID exposure. No abdominal pain nausea or vomiting. He is really unsure why he is here to get a CT scan but since he was told to get a CT scan he is here to have it done. - Related Data Allergies Allergy/AdvReac Type Severity Reaction Status Date / Time acetaminophen [From Tylenol] Allergy Cannot Verified 09/02/19 12:48 Remember cephalexin [Cephalexin] Allergy Rash Verified 09/02/19 12:48 hydrocodone Allergy Cannot Verified 09/02/19 12:48 Remember Home Meds: Home Meds Aspirin [Halfprin] 81 mg PO DAILY 06/20/13 [History] lamoTRIgine [Lamictal] 200 mg PO BID 06/20/13 [History] levETIRAcetam [Keppra] 750 mg PO BID 06/20/13 [History] Lisinopril 2.5 mg PO DAILY 03/03/15 [History] Metoprolol Tartrate 25 mg PO DAILY 03/03/15 [History] Pyridoxine HCl (Vitamin B6) [Pyridoxine HCl] 100 mg PO DAILY 03/03/15 [History] Calcium Carbonate/Vitamin D3 [Calcium Carb 500 MG] 648 mg PO DAILY 05/09/19 [History] Cholecalciferol (Vitamin D3) [Vitamin D3] 50 mcg PO DAILY 05/09/19 [History] Alendronate Sodium 70 mg PO DAILY 08/12/19 [History] Allopurinol [Zyloprim] 300 mg PO DAILY 08/12/19 [History] Lidocaine 5% [Lidoderm 5%] 1 patch TOP ASDIRECTED 08/12/19 [History] Prochlorperazine Maleate 10 mg PO Q6HR PRN 08/12/19 [History] Tiotropium [Spiriva HandiHaler] 18 mcg PO DAILY 08/12/19 [History] dexAMETHasone [Dexamethasone] 8 mg PO DAILY 08/12/19 [History] traMADol [Ultram] 50 mg PO TID PRN 08/12/19 [History] Past Medical History HEENT History: Reports: Hard of Hearing, Impaired Vision Other HEENT History: wears glasses and hearing aides Cardiovascular History: Reports: High Cholesterol, Hypertension Respiratory History: Reports: None Gastrointestinal History: Reports: Colon Polyp Genitourinary History: Reports: None Musculoskeletal History: Reports: Fracture Neurological History: Reports: Seizure Psychiatric History: Reports: None Endocrine/Metabolic History: Reports: None Hematologic History: Reports: None Immunologic History: Reports: Immunosuppression Oncologic (Cancer) History: Reports: Colon, Liver, Metastatic Dermatologic History: Reports: None - Infectious Disease History Infectious Disease History: Reports: Measles, Mumps - Past Surgical History Head Surgeries/Procedures: Reports: None Cardiovascular Surgical History: Reports: Coronary Artery Stent GI Surgical History: Reports: Colonoscopy, Polypectomy, Other (See Below) Musculoskeletal Surgical History: Reports: Shoulder Replacement Social & Family History - Family History Family Medical History: Noncontributory - Tobacco Use Smoking Status *Q: Current Every Day Smoker Years of Tobacco use: 50 Packs/Tins Daily: 1 - Caffeine Use Caffeine Use: Reports: Coffee - Recreational Drug Use Recreational Drug Use: No - Living Situation & Occupation Living situation: Reports: , with Spouse Occupation: Retired ED ROS GENERAL - Review of Systems Review Of Systems: Comprehensive ROS is negative, except as noted in HPI. ED EXAM, HEAD INJURY - Physical Exam Exam: See Below Text/Narrative:: [place] C Collar in place. Exam Limited By: No Limitations General Appearance: Alert, WD/WN, No Apparent Distress Head: Atraumatic, Normocephalic Eyes: Bilateral Eye: EOMI Ears: Normal External Exam, Normal Canal, Hearing Grossly Normal, Normal TMs Nose: Normal Inspection, Normal Mucousa, No Blood Throat/Mouth: Normal Inspection, Normal Lips, Normal Teeth, Normal Oropharynx, Normal Voice Neck: Non-Tender, Full Range of Motion, Normal Alignment Respiratory: No Respiratory Distress, Lungs Clear, Normal Breath Sounds, No Accessory Muscle Use, Chest Non-Tender Cardiovascular: Normal Peripheral Pulses, Regular Rate, Rhythm GI/Abdominal Exam: Normal Bowel Sounds, Soft, Non-Tender (Male) Exam: Deferred Rectal (Males) Exam: Deferred Back Exam: Normal Inspection, Full Range of Motion Extremities: Normal Inspection, Normal Range of Motion, Normal Capillary Refill 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 As Tested, No Motor/Sensory Deficits, Alert, Normal Mood/Affect, Oriented x 3 Skin: Normal Color, Warm/Dry - Corina Coma Score Best Eye Response ([place]): (4) Open Spontaneously Best Verbal Response ([place]): (5) Oriented Best Motor Response ([place]): (6) Obeys Commands Course - Vital Signs Last Recorded V/S: Last Vital Signs Temp 36.9 C 09/02/19 12:49 Pulse 68 09/02/19 12:49 Resp 16 09/02/19 12:49 BP 124/89 09/02/19 12:49 Pulse Ox 97 09/02/19 12:49 - Radiology Interpretation Free Text/Narrative:: CT of the head per radiology shows improvement but not total resolution of the intracranial hemorrhage. - Re-Assessments/Exams Free Text/Narrative Re-Assessment/Exam: 09/02/19 13:26 I don't feel that since the patient has been evaluated by a neurosurgeon and this is weeks ago and he is asymptomatic that we don't need a CT scan. Although I did offer and he accepted. 09/02/19 13:49 Explain to the patient that his CT scan is showing improvement of the intracranial hemorrhages. It is not completely resolved but much improved. We will continue to follow this through his neurosurgery follow-ups in [place]. He is completely asymptomatic while he is here in the emergency department. We will discharge him home at this time. Departure - Departure Time of Disposition: 13:46 Disposition: Home, Self-Care 01 Clinical Impression: Subarachnoid hemorrhage after traumatic injury without open intracranial wound, with prolonged loss of consciousness and return to pre-existing level of consciousness - Discharge Information Instructions: Head Injury, Adult, [id number] Additional Instructions: Continue with previous therapies. Follow up with any concerns or as previously directed by neurosurgery or trauma surgery in [place]. Return to the ED if new or worsening symptoms. Sepsis Event Note (ED) - Evaluation Sepsis Screening Result: No Definite Risk - Focused Exam Vital Signs: Vital Signs Temp Pulse Resp BP Pulse Ox 09/02/19 12:49 36.9 C 68 16 124/89 97 - Assessment/Plan Assessment:: S/P Traumatic subarachnoid hemorrhage with improvement per CT scan. No complaints or concerns. S/P C2 fracture no complaints [place] collar still in place. Plan: Continue with previous therapies. Follow up with any concerns or as previously directed by neurosurgery or trauma surgery in [place]. Return to the ED if new or worsening symptoms.
--- NOTE | 2019-09-02 13:32 | CT ---
PROCEDURE INFORMATION: Exam: CT Head Without Contrast Exam date and time: 09/02/2019 1:15 PM Age: 69 years old Clinical indication: Pain; Headache; Additional info: Recent subarachnoid TECHNIQUE: Imaging protocol: Computed tomography of the head without contrast. Radiation optimization: All CT scans at this facility use at least one of these dose optimization techniques: automated exposure control; mA and/or kV adjustment per patient size (includes targeted exams where dose is matched to clinical indication); or iterative reconstruction. COMPARISON: CT Head wo Cont 08/18/2019 9:49 AM FINDINGS: Brain: Since the previous examination central and cortical atrophy is again identified. There is a small amount of residual cortical petechial hemorrhaging seen involving the right posterior parietal lobe. Blood within the interhemispheric fissure has decreased and almost resolved. There is no evidence of frontal lobe blood or blood near the vertex. Ventricles: Normal. No ventriculomegaly. Bones/joints: Unremarkable. No acute fracture. Sinuses: Visualized sinuses are unremarkable. No fluid levels. Mastoid air cells: Visualized mastoid air cells are well aerated. Soft tissues: Unremarkable. IMPRESSION: Improvement but not total resolution of the intracranial hemorrhage.
== END 2019-09-02 13:50 | disposition home or self-care (01) ==
LOC: DL.ED 12:22
DX: S06.6X9A Traumatic subarachnoid hemorrhage with loss of consciousness of unspecified duration, initial encounter (principal); I10 Essential (primary) hypertension; E78.00 Pure hypercholesterolemia, unspecified; R56.9 Unspecified convulsions; F17.210 Nicotine dependence, cigarettes, uncomplicated; Z88.5 Allergy status to narcotic agent; Z88.1 Allergy status to other antibiotic agents; Z79.82 Long term (current) use of aspirin; Z79.899 Other long term (current) drug therapy; Z88.8 Allergy status to other drugs, medicaments and biological substances; W19.XXXA Unspecified fall, initial encounter
CPT/HCPCS: 70450; 99283-25

== ENCOUNTER 2019-10-11 10:35 | Emergency (ER) | payer OTHER, MEDICARE ==
--- NOTE | 2019-10-11 10:54 | EDM.PDOC ---
ED HPI GENERAL MEDICAL PROBLEM - General Chief Complaint: General Stated Complaint: RECENT CHEMO, TOOK SHOT EARLY, [facility] Time Seen by Provider: 10/11/19 10:51 Source of Information: Reports: Patient, Family (), Old Records, RN, RN Notes Reviewed - History of Present Illness INITIAL COMMENTS - FREE TEXT/NARRATIVE: Pt concerned that he took his WBC stimulation injection 12 hours before he was supposed to. Pt feels fine and has no complaints, but his call [facility] and they were told to go to the ER immediately. Onset: Today Associated Symptoms: Reports: No Other Symptoms - Related Data Allergies Allergy/AdvReac Type Severity Reaction Status Date / Time acetaminophen [From Tylenol] Allergy Cannot Verified 09/02/19 12:48 Remember cephalexin [Cephalexin] Allergy Rash Verified 09/02/19 12:48 hydrocodone Allergy Cannot Verified 09/02/19 12:48 Remember Home Meds: Home Meds Aspirin [Halfprin] 81 mg PO DAILY 06/20/13 [History] lamoTRIgine [Lamictal] 200 mg PO BID 06/20/13 [History] levETIRAcetam [Keppra] 750 mg PO BID 06/20/13 [History] Lisinopril 2.5 mg PO DAILY 03/03/15 [History] Metoprolol Tartrate 25 mg PO DAILY 03/03/15 [History] Pyridoxine HCl (Vitamin B6) [Pyridoxine HCl] 100 mg PO DAILY 03/03/15 [History] Calcium Carbonate/Vitamin D3 [Calcium Carb 500 MG] 648 mg PO DAILY 05/09/19 [History] Cholecalciferol (Vitamin D3) [Vitamin D3] 50 mcg PO DAILY 05/09/19 [History] Alendronate Sodium 70 mg PO DAILY 08/12/19 [History] Allopurinol [Zyloprim] 300 mg PO DAILY 08/12/19 [History] Lidocaine 5% [Lidoderm 5%] 1 patch TOP ASDIRECTED 08/12/19 [History] Prochlorperazine Maleate 10 mg PO Q6HR PRN 08/12/19 [History] Tiotropium [Spiriva HandiHaler] 18 mcg PO DAILY 08/12/19 [History] dexAMETHasone [Dexamethasone] 8 mg PO DAILY 08/12/19 [History] traMADol [Ultram] 50 mg PO TID PRN 08/12/19 [History] Past Medical History HEENT History: Reports: Hard of Hearing, Impaired Vision Other HEENT History: wears glasses and hearing aides Cardiovascular History: Reports: High Cholesterol, Hypertension Respiratory History: Reports: None Gastrointestinal History: Reports: Colon Polyp Genitourinary History: Reports: None Musculoskeletal History: Reports: Fracture Neurological History: Reports: Seizure Psychiatric History: Reports: None Endocrine/Metabolic History: Reports: None Hematologic History: Reports: None Immunologic History: Reports: Immunosuppression Oncologic (Cancer) History: Reports: Colon, Liver, Metastatic Dermatologic History: Reports: None - Infectious Disease History Infectious Disease History: Reports: Measles, Mumps - Past Surgical History Head Surgeries/Procedures: Reports: None Cardiovascular Surgical History: Reports: Coronary Artery Stent GI Surgical History: Reports: Colonoscopy, Polypectomy, Other (See Below) Musculoskeletal Surgical History: Reports: Shoulder Replacement Social & Family History - Family History Family Medical History: Noncontributory - Caffeine Use Caffeine Use: Reports: Coffee - Living Situation & Occupation Living situation: Reports: , with Spouse Occupation: Retired ED ROS GENERAL - Review of Systems Review Of Systems: Comprehensive ROS is negative, except as noted in HPI. ED EXAM, GENERAL - Physical Exam Exam: See Below Exam Limited By: No Limitations General Appearance: Alert, No Apparent Distress Throat/Mouth: Normal Inspection, Normal Voice, No Airway Compromise Head: Atraumatic, Normocephalic Neck: Other (C-collar not removed for exam) Cardiovascular: Regular Rate, Rhythm, No Edema Back Exam: Normal Inspection Extremities: Normal Inspection Neurological: Alert, Oriented, CN II-XII Intact, No Motor/Sensory Deficits Psychiatric: Normal Affect, Normal Mood Skin Exam: Warm, Dry, Intact, Normal Color, No Rash Departure - Departure Time of Disposition: 10:53 Disposition: Home, Self-Care 01 Condition: Good Clinical Impression: Encounter for medical screening examination - Discharge Information *PRESCRIPTION DRUG MONITORING PROGRAM REVIEWED*: Not Applicable *COPY OF PRESCRIPTION DRUG MONITORING REPORT IN PATIENT DALIA: Not Applicable Instructions: Medical Screening Exam Forms: ED Department Discharge Additional Instructions: Take your medications exactly as prescribed.
[2019-10-11 11:03] VITALS: BP 111/69; PULSE 74
== END 2019-10-11 11:06 | disposition home or self-care (01) ==
LOC: DL.ED 10:35
DX: Z00.00 Encounter for general adult medical examination without abnormal findings (principal); E78.00 Pure hypercholesterolemia, unspecified; I10 Essential (primary) hypertension; R56.9 Unspecified convulsions; Z88.6 Allergy status to analgesic agent; Z88.1 Allergy status to other antibiotic agents; Z88.5 Allergy status to narcotic agent; Z79.82 Long term (current) use of aspirin; Z79.899 Other long term (current) drug therapy
CPT/HCPCS: 99282

== ENCOUNTER 2020-02-07 13:14 | Emergency (ER) | payer OTHER, MEDICARE ==
[~2020-02-07 13:14] MED LIST: Sodium Chloride 0.9% 10 ML Syringe FLUSH PRN
--- NOTE | 2020-02-07 13:14 | EDM.PDOC ---
ED HPI GENERAL MEDICAL PROBLEM - General Chief Complaint: Head Injury Stated Complaint: AMBULANCE Time Seen by Provider: 02/07/20 13:02 Source of Information: Reports: Patient, EMS, Family History Limitations: Reports: No Limitations - History of Present Illness INITIAL COMMENTS - FREE TEXT/NARRATIVE: Patient is here by ambulance for a fall from standing. He has had multiple falls in the last few months, including a C2 fracture about 6 months ago. He has liver cancer and there has been some concern about possible metastasis to the brain given mood changes over the last few weeks. Today, he was reaching for the thermostat when he fell backwards and his his head on a doorknob. He became combative with his family so EMS was called. They were able to calm him down and brought him in for evaluation. Patient denies any pain or numbness anywhere. He admits to hitting the back of his head. Primary Survey Airway: intact Breathing: non labored Circulation: perfusing well Deformity: none apparent Expose: as appropriate GCS: 15 Secondary Survey See physical exam below Provider Trauma Notes Arrival Time: 1302 GCS on arrival: 15 C-collar present on arrival: no GCS at 1 hour: 15 Off spine board: n/a Time primary survey: 1302 Time secondary survey: 1303 Time C-collar cleared: n/a By: Time removed: GCS on discharge: 15 Onset: Today - Related Data Allergies Allergy/AdvReac Type Severity Reaction Status Date / Time acetaminophen [From Tylenol] Allergy Cannot Verified 10/11/19 11:03 Remember cephalexin [Cephalexin] Allergy Rash Verified 10/11/19 11:03 hydrocodone Allergy Cannot Verified 10/11/19 11:03 Remember Home Meds: Home Meds Aspirin [Halfprin] 81 mg PO DAILY 06/20/13 [History] lamoTRIgine [Lamictal] 200 mg PO BID 06/20/13 [History] levETIRAcetam [Keppra] 750 mg PO BID 06/20/13 [History] Lisinopril 2.5 mg PO DAILY 03/03/15 [History] Metoprolol Tartrate 25 mg PO DAILY 03/03/15 [History] Pyridoxine HCl (Vitamin B6) [Pyridoxine HCl] 100 mg PO DAILY 03/03/15 [History] Calcium Carbonate/Vitamin D3 [Calcium Carb 500 MG] 648 mg PO DAILY 05/09/19 [History] Cholecalciferol (Vitamin D3) [Vitamin D3] 50 mcg PO DAILY 05/09/19 [History] Alendronate Sodium 70 mg PO DAILY 08/12/19 [History] Allopurinol [Zyloprim] 300 mg PO DAILY 08/12/19 [History] Lidocaine 5% [Lidoderm 5%] 1 patch TOP ASDIRECTED 08/12/19 [History] Prochlorperazine Maleate 10 mg PO Q6HR PRN 08/12/19 [History] Tiotropium [Spiriva HandiHaler] 18 mcg PO DAILY 08/12/19 [History] dexAMETHasone [Dexamethasone] 8 mg PO DAILY 08/12/19 [History] traMADol [Ultram] 50 mg PO TID PRN 08/12/19 [History] Past Medical History HEENT History: Reports: Hard of Hearing, Impaired Vision Other HEENT History: wears glasses and hearing aides Cardiovascular History: Reports: High Cholesterol, Hypertension Respiratory History: Reports: None Gastrointestinal History: Reports: Colon Polyp Genitourinary History: Reports: None Musculoskeletal History: Reports: Fracture Neurological History: Reports: Seizure Psychiatric History: Reports: None Endocrine/Metabolic History: Reports: None Hematologic History: Reports: None Immunologic History: Reports: Immunosuppression Oncologic (Cancer) History: Reports: Colon, Liver, Metastatic Dermatologic History: Reports: None - Infectious Disease History Infectious Disease History: Reports: Measles, Mumps - Past Surgical History Head Surgeries/Procedures: Reports: None Cardiovascular Surgical History: Reports: Coronary Artery Stent GI Surgical History: Reports: Colonoscopy, Polypectomy, Other (See Below) Musculoskeletal Surgical History: Reports: Shoulder Replacement Social & Family History - Family History Family Medical History: No Pertinent Family History - Caffeine Use Caffeine Use: Reports: Coffee - Living Situation & Occupation Living situation: Reports: , with Spouse Occupation: Retired ED ROS GENERAL - Review of Systems Review Of Systems: Comprehensive ROS is negative, except as noted in HPI. ED EXAM, HEAD INJURY - Physical Exam Exam: See Below Exam Limited By: No Limitations General Appearance: Alert, WD/WN, No Apparent Distress Head: Normocephalic Nexus Criteria: No: Posterior, Midline Cervical Tenderness, Evidence of Intoxication, Altered Level of Consciousness, Focal Neurological Deficit, Painful Distraction Injuries Eyes: Bilateral Eye: Normal Inspection Ears: Normal External Exam Nose: Normal Inspection, Normal Mucousa, No Blood Throat/Mouth: Normal Inspection, Normal Lips, Normal Teeth, Normal Gums, No Airway Compromise Neck: Non-Tender, Full Range of Motion, Normal Alignment, Normal Inspection Respiratory: No Respiratory Distress, Lungs Clear, Normal Breath Sounds, No Accessory Muscle Use, Chest Non-Tender Cardiovascular: Normal Peripheral Pulses, Regular Rate, Rhythm, No Edema, No Murmur GI/Abdominal Exam: Soft, Non-Tender, No Distention, Pelvis Stable (Male) Exam: Deferred Rectal (Males) Exam: Deferred Back Exam: Normal Inspection, Full Range of Motion. 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 DIRECTED Care 02/07/20 13:12 Active UA RFX MAYITO AND CULT IF INDIC [URIN] Stat Lab 02/07/20 13:11 Ordered Sodium Chloride 0.9% [Saline Flush] Med 02/07/20 13:11 Active 10 ml FLUSH ASDIRECTED PRN Peripheral IV Insertion Adult [OM.PC] Stat Oth 02/07/20 13:11 Ordered Medication Orders Sodium Chloride (Saline Flush) 10 ml FLUSH ASDIRECTED PRN PRN Reason: Keep Vein Open Labs: Laboratory Tests 02/07/20 02/07/20 02/07/20 Range/Units 13:10 13:10 13:10 WBC 7.1 (5.0-10.0) 10^3/uL RBC 3.72 L (4.6-6.2) 10^6/uL Hgb 12.4 L D (14.0-18.0) g/dL Hct 35.7 L (40.0-54.0) % MCV 96.0 D (80-100) fL MCH 33.3 (27.0-34.0) pg MCHC 34.7 (33.0-35.0) g/dL Plt Count 192 D (150-450) 10^3/uL Neut % (Auto) 65.5 (42.2-75.2) % Lymph % (Auto) 18.6 L (20.5-50.1) % [place] % (Auto) 12.8 H (2-8) % Eos % (Auto) 2.8 (1.0-3.0) % Baso % (Auto) 0.3 (0.0-1.0) % PT 11.9 (9.0-12.0) SEC INR 1.3 H (0.9-1.2) APTT 26.5 (22.0-34.0) SEC Sodium 135 L (136-145) mmol/L Potassium 3.9 (3.5-5.1) mmol/L Chloride 96 L (98-107) mmol/L Carbon Dioxide 34 H (21-32) mmol/L Anion Gap 8.9 (7-13) mEq/L BUN 18 (7-18) mg/dL Creatinine 1.06 (0.70-1.30) mg/dL Est Cr Clr Drug Dosing TNP Estimated GFR (MDRD) > 60 BUN/Creatinine Ratio 17.0 (No establ ref range) Glucose 104 H (74-99) mg/dL Calcium 9.1 (8.5-10.1) mg/dL Total Bilirubin 0.8 (0.2-1.0) mg/dL AST 55 H (15-37) U/L ALT 61 (16-63) U/L Alkaline Phosphatase 329 H (46-116) U/L Total Protein 6.5 (6.4-8.2) g/dL Albumin 3.2 L (3.4-5.0) g/dL Globulin 3.3 Albumin/Globulin Ratio 0.97 Meds: Medications Generic Name Dose Route Start Last Admin Trade Name Freq PRN Reason Stop Dose Admin Sodium Chloride 10 ml 02/07/20 13:11 Saline Flush FLUSH ASDIRECTED PRN Keep Vein Open - Radiology Interpretation Free Text/Narrative:: CT head without acute hemorrhage. Multiple lesions are present throughout the bilateral cerebral hemispheres and bilateral cerebellar hemispheres. Finding is highly concerning for metastatic disease. Departure - Departure Time of Disposition: 14:06 Disposition: Home, Self-Care 01 Condition: Fair Clinical Impression: Fall from ground level, Brain metastasis - Discharge Information Instructions: Fall Prevention in the Home, Adult, [id number] Forms: ED Department Discharge Additional Instructions: Will send disk with CT images and report with family Encouraged to use walker or wheelchair due to increased weakness to prevent future falls Call oncology on Sunday to notify them of the CT findings and make an appointment - My Orders Last 24 Hours: My Active Orders 02/07/20 13:11 UA RFX MAYITO AND CULT IF INDIC [URIN] Stat Sodium Chloride 0.9% [Saline Flush] 10 ml FLUSH ASDIRECTED PRN Peripheral IV Insertion Adult [OM.PC] Stat 02/07/20 13:12 Peripheral IV Care [RC] . DIRECTED - Assessment/Plan Last 24 Hours: My Active Orders 02/07/20 13:11 UA RFX [place]ITO AND CULT IF INDIC [URIN] Stat Sodium Chloride 0.9% [Saline Flush] 10 ml FLUSH ASDIRECTED PRN Peripheral IV Insertion Adult [OM.PC] Stat 02/07/20 13:12 Peripheral IV Care [RC] . DIRECTED
--- NOTE | 2020-02-07 13:28 | CT ---
PROCEDURE INFORMATION: Exam: CT Head Without Contrast Exam date and time: 02/07/2020 1:17 PM Age: 69 years old Clinical indication: Injury or trauma; Fall; Blunt trauma (contusions or hematomas); With loss of consciousness; Additional info: Fall, >65 yo, aspirin. HX. Liver CA. TECHNIQUE: Imaging protocol: Computed tomography of the head without contrast. Radiation optimization: All CT scans at this facility use at least one of these dose optimization techniques: automated exposure control; mA and/or kV adjustment per patient size (includes targeted exams where dose is matched to clinical indication); or iterative reconstruction. COMPARISON: CT Head wo Cont 09/02/2019 1:15 PM FINDINGS: Brain: There are multiple lesions within the brain. In the left frontal lobe, a lesion is identified measuring 2.1 x 1.9 cm with moderate grade vasogenic edema throughout the left frontal lobe. Lesion within the left temporal lobe measures approximately 1.3 x 1.0 cm and demonstrates moderate grade vasogenic edema as well. There could be a 2nd lesion within the left temporal lobe also measuring 1.0 by 1.0 cm. A right temporal lobe lesion is present measuring 2.1 by 1.4 cm. Moderate grade vasogenic edema is present within this location as well. A lesion within the right cerebellar hemisphere measures 1.8 x 1.4 cm. There is moderate grade edema within both cerebral hemispheres. There are likely other lesions. MRI of the brain with gadolinium would be useful to more fully assess the extent presumed intracranial metastatic disease. No hemorrhage is identified. There is mass effect in association with the described lesions, however, there is no midline shift or herniation. Cerebral ventricles: There is no hydrocephalus. Bones/joints: No calvarial lesion or fracture identified. Paranasal sinuses: Visualized sinuses are unremarkable. No fluid levels. Mastoid air cells: Visualized mastoid air cells are well aerated. Soft tissues: Unremarkable. IMPRESSION: 1. Multiple lesions are present throughout the bilateral cerebral hemispheres and bilateral cerebellar hemispheres. Finding is highly concerning for metastatic disease.
[2020-02-07 13:33] LABS: PTT,PARTIAL THROMBOPLSTIN TIME 26.5 SEC (22.0-34.0)
[2020-02-07 13:35] LABS: ANION GAP 8.9 mEq/L (7-13); CHLORIDE,CL 96 mmol/L (98-107); SODIUM,NA 135 mmol/L (136-145)
== END 2020-02-07 14:44 | disposition home or self-care (01) ==
LOC: DL.ED 13:14
DX: Z04.3 Encounter for examination and observation following other accident (principal); C22.8 Malignant neoplasm of liver, primary, unspecified as to type; C79.31 Secondary malignant neoplasm of brain; R56.9 Unspecified convulsions; Z79.82 Long term (current) use of aspirin; Z79.899 Other long term (current) drug therapy; Z88.6 Allergy status to analgesic agent; Z88.1 Allergy status to other antibiotic agents; Z88.5 Allergy status to narcotic agent
CPT/HCPCS: 36415; 70450; 80053; 85025; 85610; 85730; 99284-25